=== PATIENT | male | born 1980 | race African-American/Black ===

== ENCOUNTER 2018-09-22 08:06 | Emergency (ER) | payer BC ==
[2018-09-22] MEDS ORDERED: Albuterol/Ipratropium 3.0-0.5 MG/3 ML Neb Soln NEB ONE (08:34)
--- NOTE | 2018-09-22 08:40 | EDM.PDOC ---
ED HPI GENERAL MEDICAL PROBLEM - General Chief Complaint: Respiratory Problem Stated Complaint: CHEST PAIN Time Seen by Provider: 09/22/18 08:13 - History of Present Illness INITIAL COMMENTS - FREE TEXT/NARRATIVE: HISTORY AND PHYSICAL: History of present illness: The patient is a 38-year-old male who has no significant pulmonary or cardiac history but does have a history of one pack a day smoking for many years and presents with complaints of 4-5 months of cough which is episodic spastic. The patient says that he has not seen a provider for this and did not get his flu shot this year. He's had no fevers chills or night sweats no recent weight loss no abdominal pain vomiting or diarrhea and says he is eating and drinking normally. He does admit that he drinks mostly caffeinated products and does not hydrate very well. He told nursing and me that he does have some diffuse anterior chest pain that comes and goes but it's mostly associated with the cough and occasionally with his breathing but it is not consistent or localized in any one space or area. He says that he the spastic cough and occasionally gets some phlegm but is mostly hacking. Over the last few days he has noticed some specks of blood he coughs in the mucous as well as similar from nasal drainage. He has no sinus pressure or pain no sore throat and no back pain. He has no leg pain or swelling. The patient says he has had a PPD years ago or a job he was doing which was negative but nothing recently. The patient says he's never had a bronchitis or asthma symptoms nor has he ever had pneumonia. Review of systems: As per history of present illness and below otherwise all systems reviewed and negative. Past medical history: As per history of present illness and as reviewed below otherwise noncontributory. Surgical history: As per history of present illness and as reviewed below otherwise noncontributory. Social history: No reported history of drug or alcohol abuse. Family history: As per history of present illness and as reviewed below otherwise noncontributory. Physical exam: General: Well-developed well-nourished man who is nontoxic and vital signs were noted by me. He is not breathless or hoarse on evaluation and he has no nasal quality to his voice HEENT: Atraumatic, normocephalic, pupils reactive, negative for conjunctival pallor or scleral icterus, mucous membranes moist, throat clear, neck supple, nontender, trachea midline. There is no cervical adenopathy or nuchal rigidity Lungs: Clear to auscultation with an occasional coarse breath sound but no wheezing stridor or work of breathing, breath sounds equal bilaterally, chest nontender. Heart: S1S2, regular, negative for clicks, rubs, or JVD. Abdomen: Soft, nondistended, nontender. Negative for masses or hepatosplenomegaly. Negative for costovertebral tenderness. Pelvis: Stable nontender. Genitourinary: Deferred. Rectal: Deferred. Extremities: Atraumatic, negative for cords or calf pain. Neurovascular unremarkable. No pedal edema or leg asymmetry Neuro: Awake, alert, oriented. Cranial nerves II through XII unremarkable. Cerebellum unremarkable. Motor and sensory unremarkable throughout. Exam nonfocal. Diagnostics: CBC chest x-ray Therapeutics: DuoNeb spacer I discussed with the patient at length by limitations here in the ED in evaluating a cough that has been present for 4-5 months. We agreed upon doing a basic blood count and a chest x-ray and helping him to treat his symptoms but he is aware that he will need further workup if the symptoms persist. I will give him appropriate information for clinic referral. Please note that initially on my evaluation the patient seemed very put off about my direct nature and about what an ED visit actually entails and seemed concerned. These concerns were alleviated and the patient was given information and made aware of the ED limitations and that is more chronic issues will need to be better addressed in the clinic Impression: Persistent cough, history of tobacco use stable Definitive disposition and diagnosis as appropriate pending reevaluation and review of above. chest Pain Score (Numeric/FACES): 2 - Related Data Allergies Allergy/AdvReac Type Severity Reaction Status Date / Time No Known Allergies Allergy Verified 09/22/18 08:15 Home Meds: Home Meds . [No Known Home Meds] 09/22/18 [History] Past Medical History - Past Health History Medical/Surgical History: Denies Medical/Surgical History - Infectious Disease History Infectious Disease History: Reports: Chicken Pox Social & Family History - Family History Family Medical History: Noncontributory - Tobacco Use Smoking Status *Q: Current Every Day Smoker Years of Tobacco use: 10 Packs/Tins Daily: 1 - Recreational Drug Use Recreational Drug Use: No ED ROS GENERAL - Review of Systems Review Of Systems: ROS reveals no pertinent complaints other than HPI. ED EXAM, GENERAL - Physical Exam Exam: See Below (See dictation) Course - Vital Signs Last Recorded V/S: Last Vital Signs Temp 36.3 C 09/22/18 08:16 Pulse 95 09/22/18 08:16 Resp 18 09/22/18 08:16 BP 134/74 09/22/18 08:16 Pulse Ox 96 09/22/18 08:16 - Orders/Labs/Meds Orders: Active Orders 24 hr Category Date Time Status RT Aerosol Therapy [RC] ASDIRECTED Care 09/22/18 08:35 Active Labs: Laboratory Tests 09/22/18 Range/Units 08:47 WBC 5.14 (4.0-11.0) K/uL RBC 4.88 (4.50-5.90) M/uL Hgb 15.0 (13.0-17.0) g/dL Hct 45.8 (38.0-50.0) % MCV 93.9 (80.0-98.0) fL MCH 30.7 (27.0-32.0) pg MCHC 32.8 (31.0-37.0) g/dL RDW Std Deviation 46.3 (28.0-62.0) fl RDW Coeff of Dominga 14 (11.0-15.0) % Plt Count 166 (150-400) K/uL MPV 11.20 (7.40-12.00) fL Neut % (Auto) 52.9 (48.0-80.0) % Lymph % (Auto) 31.9 (16.0-40.0) % [place] % (Auto) 13.2 (0.0-15.0) % Eos % (Auto) 1.6 (0.0-7.0) % Baso % (Auto) 0.4 (0.0-1.5) % Neut # (Auto) 2.7 (1.4-5.7) K/uL Lymph # (Auto) 1.6 (0.6-2.4) K/uL [place] # (Auto) 0.7 (0.0-0.8) K/uL Eos # (Auto) 0.1 (0.0-0.7) K/uL Baso # (Auto) 0.0 (0.0-0.1) K/uL Nucleated RBC % 0.0 /100WBC Nucleated RBCs # 0 K/uL Meds: Medications Discontinued Medications Generic Name Dose Route Start Last Admin Trade Name Michael PRN Reason Stop Dose Admin Albuterol/Ipratropium 3 ml 09/22/18 08:34 09/22/18 08:41 Duoneb 3.0-0.5 Mg/3 Ml NEB 09/22/18 08:35 3 ml ONETIME ONE Administration Departure - Departure Time of Disposition: 09:38 Disposition: Home, Self-Care 01 Condition: Good Clinical Impression: Persistent cough - Discharge Information Referrals: PCP,None [Primary Care Provider] - Forms: ED Department Discharge Additional Instructions: The following information is given to patients seen in the emergency department who are being discharged to home. This information is to outline your options for follow-up care. We provide all patients seen in our emergency department with a follow-up referral. The need for follow-up, as well as the timing and circumstances, are variable depending upon the specifics of your emergency department visit. If you don't have a primary care physician on staff, we will provide you with a referral. We always advise you to contact your personal physician following an emergency department visit to inform them of the circumstance of the visit and for follow-up with them and/or the need for any referrals to a consulting specialist. The emergency department will also refer you to a specialist when appropriate. This referral assures that you have the opportunity for followup care with a specialist. All of these measure are taken in an effort to provide you with optimal care, which includes your followup. Under all circumstances we always encourage you to contact your private physician who remains a resource for coordinating your care. When calling for followup care, please make the office aware that this follow-up is from your recent emergency room visit. If for any reason you are refused follow-up, please contact the [facility] emergency department at and ask to speak to the emergency department charge nurse. [facility] Primary care- Internal Medicine and Family [address] [address] Push hydration and try to reduce and/or quit smoking as we discussed. Use the albuterol/Ventolin inhaler you have been given with the spacer every 4-6 hours and one half as needed. Please call and schedule a follow-up appointment in the clinic as we discussed and return to ER as needed and as discussed - My Orders Last 24 Hours: My Active Orders 09/22/18 08:35 RT Aerosol Therapy [RC] ASDIRECTED - Assessment/Plan Last 24 Hours: My Active Orders 09/22/18 08:35 RT Aerosol Therapy [RC] ASDIRECTED
--- NOTE | 2018-09-22 09:32 | CR ---
INDICATION: Pain. Short of breath. Chest tightness. Coughing up a small amount of blood. FINDINGS: PA and lateral views of the chest were obtained. The cardiac silhouette and pulmonary vasculature are within normal limits. The lungs are clear bilaterally. IMPRESSION: No evidence of acute pulmonary disease. Dictated by Guille Jones MD @ 09/22/2018 9:29:31 AM Dictated by: Guille Jones MD @ 09/22/2018 09:30:00 (Electronically Signed)
== END 2018-09-22 09:50 | disposition home or self-care (01) ==
LOC: MW.ED 08:06
DX: R05 Cough (principal); F17.210 Nicotine dependence, cigarettes, uncomplicated
CPT/HCPCS: 36415; 71046; 71046-26; 85025; 99283; 99283-25; J7620-GY

== ENCOUNTER 2018-10-29 10:08 | Day surgery (SDC) | payer BC ==
[2018-10-29] MEDS ORDERED: Sodium Chloride 0.9% 1,000 ML IV ONE (10:09)
--- NOTE | 2018-10-29 10:10 | EDM.PDOC ---
ED HPI GENERAL MEDICAL PROBLEM - General Chief Complaint: Abdominal Pain Stated Complaint: POSSIBLE HERNIA LEFT SIDE Time Seen by Provider: 10/29/18 10:09 Source of Information: Reports: Patient History Limitations: Reports: No Limitations - History of Present Illness INITIAL COMMENTS - FREE TEXT/NARRATIVE: HISTORY AND PHYSICAL: History of present illness: Patient is a 38-year-old male who presents to the emergency room with complaints of left lower abdominal pain that originated in the left lower quadrant/left groin, starting Monday. He states since this morning the pain has gotten progressively worse and now moves into his left testicle. Pain is worse with certain movements, bearing down and coughing. He is concerned he may have a hernia. Denies any injury or trauma of the abdomen/pelvis. Patient denies any fever, chills, headache, change in vision, syncope or near syncope. Denies any chest pain, back pain, shortness of breath or cough. Denies any nausea, vomiting, diarrhea, constipation or dysuria. Has not noted any blood in urine or stool. Denies any penile drainage, lesions or sores. Patient has been eating and drinking appropriately. Review of systems: As per history of present illness and below otherwise all systems reviewed and negative. Past medical history: As per history of present illness and as reviewed below otherwise noncontributory. Surgical history: As per history of present illness and as reviewed below otherwise noncontributory. Social history: See social history for further information Family history: As per history of present illness and as reviewed below otherwise noncontributory. Physical exam: General: Well-developed and well-nourished 38-year-old male. Alert and oriented. Nontoxic appearing and in no acute distress. HEENT: Atraumatic, normocephalic, pupils equal and reactive bilaterally, negative for conjunctival pallor or scleral icterus, mucous membranes moist, TMs normal bilaterally, throat clear, neck supple, nontender, trachea midline. No drooling or trismus noted. No meningeal signs. No hot potato voice noted. Lungs: Clear to auscultation, breath sounds equal bilaterally, chest nontender. Heart: S1S2, regular rate and rhythm without overt murmur Abdomen: Soft, nondistended, nontender. See for details. Negative for masses or hepatosplenomegaly. Negative for costovertebral tenderness. Pelvis: Stable nontender. Genitourinary: This was done with consent and a fugitive investigator at the bedside. Left testes is grossly enlarged and tender with palpation. No surrounding erythema. Unable to assess for hernia in the right inguinal canal due to swelling. Right teste unremarkable. Unable to appreciate any hernias in the right inguinal canal. Rectal: Deferred. Skin: SEE . Skin is intact, warm, dry. No lesions or rashes noted. Extremities: Atraumatic, moves all extremities per self without difficulty or deficits. Neurovascular unremarkable. Neuro: Awake, alert, oriented. Cranial nerves II through XII unremarkable. Cerebellum unremarkable. Motor and sensory unremarkable throughout. Exam nonfocal. Notes: Vital signs are stable and have been reviewed by me. See physical exam for testicular details. Lab work is unremarkable. Ultrasound shows a fat-containing left inguinal hernia extending into the scrotum with an adjacent hydrocele. The left testicle is also mildly hyperemic relative to the right. Under lying cholecystitis is not excluded, however this may be reactive secondary to the hernia. CT shows a fat-containing left inguinal hernia, given the fluid and stranding this may suggest incarceration. Dr Ca, general surgeon certifed refrigeration operator, was consulted on this case. He will come in and evaluate this patient. 1430: Dr Ca here with patient; plans to take patient to OR this afternoon Diagnostics: CBC, CMP, UA, Lipase, Scrotum/Contents US, Pelvis CT Therapeutics: IV fluids, Zofran, Morphine Impression: Inguinal hernia, left Plan: To OR for surgery. Definitive disposition and diagnosis as appropriate pending reevaluation and review of above. Left Groin Pain Score (Numeric/FACES): 5 - Related Data Allergies Allergy/AdvReac Type Severity Reaction Status Date / Time No Known Allergies Allergy Verified 10/29/18 10:16 Home Meds: Home Meds . [No Known Home Meds] 09/22/18 [History] Past Medical History - Past Health History Medical/Surgical History: Denies Medical/Surgical History - Infectious Disease History Infectious Disease History: Reports: Chicken Pox Social & Family History - Family History Family Medical History: Noncontributory ED ROS GENERAL - Review of Systems Review Of Systems: ROS reveals no pertinent complaints other than HPI. ED EXAM, GI/ABD - Physical Exam Exam: See Below (See dictation) Course - Vital Signs Last Recorded V/S: Last Vital Signs Temp 97.3 F 10/29/18 14:05 Pulse 66 10/29/18 14:05 Resp 16 10/29/18 14:05 BP 123/90 10/29/18 14:05 Pulse Ox 96 10/29/18 14:05 - Orders/Labs/Meds Orders: Active Orders 24 hr Category Date Time Status Notify Provider Consults [RC] ASDIRECTED Care 10/29/18 14:23 Active Consult to Physician [CONS] Stat Cons 10/29/18 14:23 Active Labs: Laboratory Tests 10/29/18 10/29/18 10/29/18 Range/Units 10:17 10:17 12:17 WBC 5.74 (4.0-11.0) K/uL RBC 5.02 (4.50-5.90) M/uL Hgb 15.6 (13.0-17.0) g/dL Hct 46.9 (38.0-50.0) % MCV 93.4 (80.0-98.0) fL MCH 31.1 (27.0-32.0) pg MCHC 33.3 (31.0-37.0) g/dL RDW Std Deviation 45.8 (28.0-62.0) fl RDW Coeff of Dominga 13 (11.0-15.0) % Plt Count 176 (150-400) K/uL MPV 11.80 (7.40-12.00) fL Neut % (Auto) 55.8 (48.0-80.0) % Lymph % (Auto) 32.6 (16.0-40.0) % [place] % (Auto) 9.9 (0.0-15.0) % Eos % (Auto) 1.4 (0.0-7.0) % Baso % (Auto) 0.3 (0.0-1.5) % Neut # (Auto) 3.2 (1.4-5.7) K/uL Lymph # (Auto) 1.9 (0.6-2.4) K/uL [place] # (Auto) 0.6 (0.0-0.8) K/uL Eos # (Auto) 0.1 (0.0-0.7) K/uL Baso # (Auto) 0.0 (0.0-0.1) K/uL Nucleated RBC % 0.0 /100WBC Nucleated RBCs # 0 K/uL Sodium 140 (136-148) mmol/L Potassium 4.3 (3.5-5.1) mmol/L Chloride 105 (98-107) mmol/L Carbon Dioxide 26.0 (21.0-32.0) mmol/L BUN 10 (7.0-18.0) mg/dL Creatinine 1.0 (0.8-1.3) mg/dL Est Cr Clr Drug Dosing 108.86 mL/min Estimated GFR (MDRD) > 60.0 ml/min Glucose 100 (74-106) mg/dL Calcium 8.8 (8.5-10.1) mg/dL Total Bilirubin 0.4 (0.2-1.0) mg/dL AST 21 (15-37) IU/L ALT 26 (14-63) IU/L Alkaline Phosphatase 67 (46-116) U/L Total Protein 7.5 (6.4-8.2) g/dL Albumin 3.9 (3.4-5.0) g/dL Globulin 3.6 (2.6-4.0) g/dL Albumin/Globulin Ratio 1.1 (0.9-1.6) Lipase 87 (73-393) U/L Urine Color YELLOW Urine Appearance CLEAR Urine pH 6.0 (5.0-8.0) Ur Specific [place] 1.025 (1.001-1.035) Urine Protein NEGATIVE (NEGATIVE) mg/dL Urine Glucose (UA) NEGATIVE (NEGATIVE) mg/dL Urine Ketones NEGATIVE (NEGATIVE) mg/dL Urine Occult Blood NEGATIVE (NEGATIVE) Urine Nitrite NEGATIVE (NEGATIVE) Urine Bilirubin NEGATIVE (NEGATIVE) Urine Urobilinogen 0.2 (<2.0) EU/dL Ur Leukocyte Esterase NEGATIVE (NEGATIVE) Meds: Medications Discontinued Medications Generic Name Dose Route Start Last Admin Trade Name Freq PRN Reason Stop Dose Admin Sodium Chloride 1,000 mls @ 999 mls/hr 10/29/18 10:09 10/29/18 10:19 Normal Saline IV 10/29/18 11:09 999 mls/hr STAT ONE Administration Iopamidol 100 ml 10/29/18 12:15 10/29/18 12:42 Isovue Multipack-370 (76%) IVPUSH 10/29/18 12:16 100 ml ONETIME STA Administration Morphine Sulfate 4 mg 10/29/18 10:30 10/29/18 10:38 Morphine IVPUSH 10/29/18 10:31 4 mg ONETIME ONE Administration Morphine Sulfate 2 mg 10/29/18 11:45 10/29/18 11:48 Morphine IVPUSH 10/29/18 11:46 2 mg ONETIME ONE Administration Morphine Sulfate Confirm 10/29/18 11:46 10/29/18 12:22 Morphine Administered 10/29/18 11:47 Not Given Dose 2 mg .ROUTE .STK-MED ONE Ondansetron HCl 4 mg 10/29/18 10:30 10/29/18 10:38 Zofran IVPUSH 10/29/18 10:31 4 mg ONETIME ONE Administration Departure - Departure Time of Disposition: 14:49 Disposition: Still A Patient 30 Clinical Impression: Inguinal hernia Qualifiers: Obstruction and gangrene presence: without obstruction or gangrene Laterality: unilateral Recurrence: non-recurrent Qualified Code(s): K40.90 - Unilateral inguinal hernia, without obstruction or gangrene, not specified as recurrent - Discharge Information Referrals: PCP,None [Primary Care Provider] - Forms: ED Department Discharge - My Orders Last 24 Hours: My Active Orders 10/29/18 14:23 Notify Provider Consults [RC] ASDIRECTED Consult to Physician [CONS] Stat - Assessment/Plan Last 24 Hours: My Active Orders 10/29/18 14:23 Notify Provider Consults [RC] ASDIRECTED Consult to Physician [CONS] Stat
[2018-10-29] MEDS ORDERED: Morphine 4 MG/ML Syringe IVPUSH ONE (10:30)
[2018-10-29] MEDS ORDERED: Ondansetron 4 MG/2 ML SDV IVPUSH ONE (10:30)
[2018-10-29 10:51] LABS: CHLORIDE,CL 105 mmol/L (98-107); SODIUM,NA 140 mmol/L (136-148)
[2018-10-29] MEDS ORDERED: Morphine 2 MG/ML Syringe IVPUSH ONE (11:45)
[2018-10-29] MEDS ORDERED: Morphine 2 MG/ML Syringe ONE (11:46)
[2018-10-29] MEDS ORDERED: Iopamidol 755 MG/ML 500 ML Multipack Bottle IVPUSH STA (12:15)
--- NOTE | 2018-10-29 13:08 | US ---
EXAMINATION: Scrotal duplex ultrasound HISTORY: Concern for hernia COMPARISON: CT from the same day TECHNIQUE: Grayscale, color Doppler, and spectral Doppler imaging obtained. FINDINGS: Both the left and right testicles are normal in size, contour, and echogenicity. No testicular mass. Small calcification noted within the right testicle. There is relatively increased color Doppler flow within the left testicle relative to the right. There is a moderate left-sided hydrocele as well. Epididymides appear grossly normal. No scrotal wall thickening. There is a fungating echogenicity extending from the left inguinal region into the scrotum with an adjacent hydrocele. This does not demonstrate increased color flow and likely represents herniation of adipose tissue. This is confirmed on the CT. IMPRESSION: 1. Fat-containing left inguinal hernia extending into the scrotum with an adjacent hydrocele. 2. The left testicle is also mildly hyperemic relative to the right. Underlying cholecystitis is not excluded, however this may be reactive secondary to the hernia.
--- NOTE | 2018-10-29 13:33 | CT ---
EXAMINATION: CT pelvis with contrast HISTORY: Concern for hernia COMPARISON: None TECHNIQUE: Axial CT imaging obtained through the pelvis following the administration 100 mL of Isovue-370 the right antecubital fossa. Coronal and sagittal reconstructions obtained. FINDINGS: The visualized large and small bowel are normal in caliber without evidence of obstruction. The urinary bladder is decompressed. No bulky pelvic lymphadenopathy or free pelvic fluid. The appendix is normal. There is a fat-containing left inguinal hernia with a small to moderate hydrocele and adjacent stranding. Visualized osseous structures appear intact. Hardware is noted within the right femur. IMPRESSION: 1. Fat-containing left inguinal hernia, given the fluid and stranding this may suggest incarceration.
[2018-10-29] MEDS ORDERED: ceFAZolin 2 GM in Premix Bag 1 BAG IV ONE (15:07)
[2018-10-29] MEDS ORDERED: Lactated Ringers 1,000 ML IV SCH ×2 (15:15→18:15)
[2018-10-29] MEDS ORDERED: Bupivacaine 25%/EPINEPHrine/PF 30 ML ONE (15:16)
[2018-10-29] MEDS ORDERED: Lidocaine 1% with EPINEPHrine 1:100,000 20 ML MDV ONE (15:17)
[2018-10-29] MEDS ORDERED: Octyl 2-Cyanoacrylate 1 Tube ONE (15:17)
--- NOTE | 2018-10-29 15:35 | PCM.PREANE ---
Preanesthetic Assessment - Anesthesia/Transfusion/Family Hx Anesthesia History: Prior Anesthesia Reaction Family History of Anesthesia Reaction: No - Review of Systems General: No Symptoms Pulmonary: No Symptoms Cardiovascular: No Symptoms Gastrointestinal: No Symptoms Neurological: No Symptoms Other: Reports: None - Physical Assessment NPO Status Date: 10/28/18 NPO Status Time: 23:00 O2 Sat by Pulse Oximetry: 96 Respiratory Rate: 16 Vital Signs: Last Vital Signs Temp 36.3 C 10/29/18 14:05 Pulse 66 10/29/18 14:05 Resp 16 10/29/18 14:05 BP 123/90 10/29/18 14:05 Pulse Ox 96 10/29/18 14:05 Height: 1.83 m Weight: 84.4 kg ASA Class: 1E Mental Status: Alert & Oriented x3 Dentition: Reports: Normal Dentition ROM/Head Extension: Full Lungs: Clear to Auscultation, Normal Respiratory Effort Cardiovascular: Regular Rate, Regular Rhythm - Lab Values: Laboratory Last Values WBC 5.74 K/uL (4.0-11.0) 10/29/18 10:17 RBC 5.02 M/uL (4.50-5.90) 10/29/18 10:17 Hgb 15.6 g/dL (13.0-17.0) 10/29/18 10:17 Hct 46.9 % (38.0-50.0) 10/29/18 10:17 MCV 93.4 fL (80.0-98.0) 10/29/18 10:17 MCH 31.1 pg (27.0-32.0) 10/29/18 10: MCHC 33.3 g/dL (31.0-37.0) 10/29/18 10:17 RDW Std Deviation 45.8 fl (28.0-62.0) 10/29/18 10:17 RDW Coeff of Dominga 13 % (11.0-15.0) 10/29/18 10:17 Plt Count 176 K/uL (150-400) 10/29/18 10:17 MPV 11.80 fL (7.40-12.00) 10/29/18 10:17 Neut % (Auto) 55.8 % (48.0-80.0) 10/29/18 10:17 Lymph % (Auto) 32.6 % (16.0-40.0) 10/29/18 10:17 Cherry % (Auto) 9.9 % (0.0-15.0) 10/29/18 10:17 Eos % (Auto) 1.4 % (0.0-7.0) 10/29/18 10:17 Baso % (Auto) 0.3 % (0.0-1.5) 10/29/18 10:17 Neut # (Auto) 3.2 K/uL (1.4-5.7) 10/29/18 10:17 Lymph # (Auto) 1.9 K/uL (0.6-2.4) 10/29/18 10:17 Cherry # (Auto) 0.6 K/uL (0.0-0.8) 10/29/18 10:17 Eos # (Auto) 0.1 K/uL (0.0-0.7) 10/29/18 10:17 Baso # (Auto) 0.0 K/uL (0.0-0.1) 10/29/18 10:17 Nucleated RBC % 0.0 /100WBC 10/29/18 10:17 Nucleated RBCs # 0 K/uL 10/29/18 10:17 Sodium 140 mmol/L (136-148) 10/29/18 10:17 Potassium 4.3 mmol/L (3.5-5.1) 10/29/18 10:17 Chloride 105 mmol/L (98-107) 10/29/18 10:17 Carbon Dioxide 26.0 mmol/L (21.0-32.0) 10/29/18 10:17 BUN 10 mg/dL (7.0-18.0) 10/29/18 10:17 Creatinine 1.0 mg/dL (0.8-1.3) 10/29/18 10:17 Est Cr Clr Drug Dosing 108.86 mL/min 10/29/18 10:17 Estimated GFR (MDRD) > 60.0 ml/min 10/29/18 10:17 Glucose 100 mg/dL (74-106) 10/29/18 10:17 Calcium 8.8 mg/dL (8.5-10.1) 10/29/18 10:17 Total Bilirubin 0.4 mg/dL (0.2-1.0) 10/29/18 10:17 AST 21 IU/L (15-37) 10/29/18 10:17 ALT 26 IU/L (14-63) 10/29/18 10:17 Alkaline Phosphatase 67 U/L (46-116) 10/29/18 10:17 Total Protein 7.5 g/dL (6.4-8.2) 10/29/18 10:17 Albumin 3.9 g/dL (3.4-5.0) 10/29/18 10:17 Globulin 3.6 g/dL (2.6-4.0) 10/29/18 10:17 Albumin/Globulin Ratio 1.1 (0.9-1.6) 10/29/18 10:17 Lipase 87 U/L (73-393) 10/29/18 10:17 Urine Color YELLOW 10/29/18 12:17 Urine Appearance CLEAR 10/29/18 12:17 Urine pH 6.0 (5.0-8.0) 10/29/18 12:17 Ur Specific [place] 1.025 (1.001-1.035) 10/29/18 12:17 Urine Protein NEGATIVE mg/dL (NEGATIVE) 10/29/18 12:17 Urine Glucose (UA) NEGATIVE mg/dL (NEGATIVE) 10/29/18 12:17 Urine Ketones NEGATIVE mg/dL (NEGATIVE) 10/29/18 12:17 Urine Occult Blood NEGATIVE (NEGATIVE) 10/29/18 12:17 Urine Nitrite NEGATIVE (NEGATIVE) 10/29/18 12:17 Urine Bilirubin NEGATIVE (NEGATIVE) 10/29/18 12:17 Urine Urobilinogen 0.2 EU/dL (<2.0) 10/29/18 12:17 Ur Leukocyte Esterase NEGATIVE (NEGATIVE) 10/29/18 12:17 - Allergies Allergies/Adverse Reactions: Allergies Allergy/AdvReac Type Severity Reaction Status Date / Time No Known Allergies Allergy Verified 10/29/18 10:16 - Acknowledgements Anesthesia Type Planned: General Anesthesia Pt an Appropriate Candidate for the Planned Anesthesia: Yes Alternatives and Risks of Anesthesia Discussed w Pt/Guardian: Yes Pt/Guardian Understands and Agrees with Anesthesia Plan: Yes Additional Comments: Questions answered. PreAnesthesia Questionnaire - Past Health History Medical/Surgical History: Denies Medical/Surgical History HEENT History: Reports: None Cardiovascular History: Reports: None Respiratory History: Reports: None Gastrointestinal History: Reports: None Genitourinary History: Reports: None Musculoskeletal History: Reports: None Neurological History: Reports: None Psychiatric History: Reports: None Endocrine/Metabolic History: Reports: None Hematologic History: Reports: None Immunologic History: Reports: None Oncologic (Cancer) History: Reports: None Dermatologic History: Reports: None - Infectious Disease History Infectious Disease History: Reports: Chicken Pox - Past Surgical History Head Surgeries/Procedures: Reports: None HEENT Surgical History: Reports: None Cardiovascular Surgical History: Reports: None Respiratory Surgical History: Reports: None GI Surgical History: Reports: None Male Surgical History: Reports: None Endocrine Surgical History: Reports: None Neurological Surgical History: Reports: None Musculoskeletal Surgical History: Reports: None Oncologic Surgical History: Reports: None Dermatological Surgical History: Reports: None - SUBSTANCE USE Smoking Status *Q: Current Every Day Smoker Recreational Drug Use History: No - HOME MEDS Home Medications: Home Meds . [No Known Home Meds] 09/22/18 [History] - CURRENT (IN HOUSE) MEDS Current Meds: Current Medications Cefazolin Sodium/Dextrose 2 gm (/ Premix) 50 mls @ 100 mls/hr IV ONETIME ONE Stop: 10/29/18 15:36 Last Admin: 10/29/18 15:32 Dose: 100 mls/hr Lactated Ringer's (Ringers, Lactated) 1,000 mls @ 150 mls/hr IV ASDIRECTED TAIWO Last Admin: 10/29/18 15:32 Dose: 150 mls/hr Discontinued Medications Sodium Chloride (Normal Saline) 1,000 mls @ 999 mls/hr IV STAT ONE Stop: 10/29/18 11:09 Last Admin: 10/29/18 10:19 Dose: 999 mls/hr Bupivacaine HCl/Epinephrine Bitart (Sensorc Mpf 0.25%-Epi 1:[id number]) Confirm Administered Dose 30 mls @ as directed .ROUTE .STK-MED ONE Stop: 10/29/18 15:17 Iopamidol (Isovue Multipack-370 (76%)) 100 ml IVPUSH ONETIME STA Stop: 10/29/18 12:16 Last Admin: 10/29/18 12:42 Dose: 100 ml Lidocaine/Epinephrine (Xylocaine 1% With Epinephrine 1:100,000) Confirm Administered Dose 20 ml .ROUTE .STK-MED ONE Stop: 10/29/18 15:18 Morphine Sulfate (Morphine) 4 mg IVPUSH ONETIME ONE Stop: 10/29/18 10:31 Last Admin: 10/29/18 10:38 Dose: 4 mg Morphine Sulfate (Morphine) 2 mg IVPUSH ONETIME ONE Stop: 10/29/18 11:46 Last Admin: 10/29/18 11:48 Dose: 2 mg Morphine Sulfate (Morphine) Confirm Administered Dose 2 mg .ROUTE .STK-MED ONE Stop: 10/29/18 11:47 Last Admin: 10/29/18 12:22 Dose: Not Given Octyl Cyanoacrylate (Dermabond Advance) Confirm Administered Dose 1 applic .ROUTE .STK-MED ONE Stop: 10/29/18 15:18 Ondansetron HCl (Zofran) 4 mg IVPUSH ONETIME ONE Stop: 10/29/18 10:31 Last Admin: 10/29/18 10:38 Dose: 4 mg
[2018-10-29] MEDS ORDERED: Midazolam 1 MG/ML 2 ML SDV ONE (15:38)
[2018-10-29] MEDS ORDERED: Ondansetron 4 MG/2 ML SDV ONE (15:38)
[2018-10-29] MEDS ORDERED: Dexamethasone 4 MG/ML 5 ML MDV ONE (15:38)
[2018-10-29] MEDS ORDERED: Lidocaine 2% 5 ML SDV ONE (15:38)
[2018-10-29] MEDS ORDERED: fentaNYL 100 MCG/2 ML SDV ONE ×2 (15:38→16:04)
[2018-10-29] MEDS ORDERED: Ketorolac 30 MG/ML SDV ONE (15:38)
[2018-10-29] MEDS ORDERED: Propofol 200 MG/20 ML SDV ONE (15:40)
--- NOTE | 2018-10-29 15:53 | PCM.SN ---
- Free Text/Narrative Note: pt seen, chart reviewed; incarcerated L ing hernia, w compromised blood supply to L testicle; proceed w urgent surg repair w mesh; rb dw pt, pt is a smoker, has smoker cough, and bronchitis, and large hernia, hi risk for failure/ recurrency, pt voiced understanding; and also long standing incarceration, with imaging decrease blood supply to L testicle, risk involved, ischemic orchitis; pt voiced understanding, proceed w surgery; [id number]
[2018-10-29] MEDS ORDERED: Rocuronium 100 MG/10 ML MDV ONE (16:03)
[2018-10-29] MEDS ORDERED: Gelatin Sponge,Absorbable 12-7 mm Sponge TOP ONE (17:14)
--- NOTE | 2018-10-29 18:03 | PCM.OPNOTE ---
- General Post-Op/Procedure Note Date of Surgery/Procedure: 10/29/18 Operative Procedure(s): L incarcerated ing hernia, repair w plug and mesh Findings: L inguinal hernia; very large indirect hernia, like a large orange, no direct hernia, repair w medium size plug; [id number] Pre Op Diagnosis: incarcerated LIH Post-Op Diagnosis: Same Anesthesia Technique: General LMA Primary Surgeon: Rodolfo Ca Pathology: hernia sac sent Complications: None Condition: Fair
[2018-10-29] MEDS ORDERED: Acetaminophen/oxyCODONE 325-5 MG Tab PO PRN (18:05)
[2018-10-29] MEDS ORDERED: Ondansetron 4 MG/2 ML SDV IVPUSH PRN (18:08)
[2018-10-29] MEDS ORDERED: Docusate Sodium 100 MG Cap PO PRN (18:08)
--- NOTE | 2018-10-29 18:26 | PCM.POSTAN ---
POST ANESTHESIA ASSESSMENT - VITAL SIGNS Pulse Rate: 88 SaO2: 98 Resp Rate: 88 Blood Pressure: 126/74 - RESPIRATORY Respiratory Status: Respiratory Rate WNL, Airway Patent, O2 Saturation Stable - CARDIOVASCULAR CV Status: Pulse Rate WNL, Blood Pressure Stable - GASTROINTESTINAL GI Status: No Symptoms - POST OP HYDRATION Hydration Status: Adequate & Stable
--- NOTE | 2018-10-30 00:24 | OR ---
SURGEON: Rodolfo Ca MD DATE OF PROCEDURE: 10/29/2018 PREOPERATIVE DIAGNOSIS: Incarcerated left inguinal hernia. POSTOPERATIVE DIAGNOSIS: Incarcerated left inguinal hernia. PROCEDURE PERFORMED: Repair of incarcerated left inguinal hernia with mesh. COMPLICATIONS: None. FINDING: A very large hernia sac, and also the hernia sac has thickened skin and suggests it has been there for quite a while. The hernia sac is about the size of a large orange, not a lemon, not a grapefruit. Repair with a medium-sized plug. There was no direct hernia, only indirect hernia. PROCEDURE IN DETAIL: The patient was taken to the operating room and placed in the supine position. Upon induction of general endotracheal anesthesia, the patient's groin and inguinal area were prepped and draped in a sterile fashion. The scrotum was placed on top of the drape in case it needed to be maneuvered. An IV antibiotic was given prophylactically and after assessment of appropriate landmark, a transverse skin incision was made two fingers above the inguinal crease. This was then carefully taken down past the Ivis fascia and exposed the external oblique where the cord is. A small george was made right on top of the cord and then using a Metzenbaum scissors, carefully opened up the fiber along its direction all the way to the external ring. The spermatic cord was then carefully lifted up from the inguinal canal. A Karl drain was then used to hold on to manipulate the cord and carefully dissect out from the inguinal floor. The cremasteric muscle was then opened up. Careful examined of the cord, dissected down the cremasteric muscle, a large glistening whitish hernia sac in the medial anterior aspect of the floor, next to the cord, was located. The vas was identified and pushed aside to avoid damage. This was carefully dissected down all the way to the internal ring. The hernia sac was open up to examine if there was any hernia content; using a 2-0 silk, a purse string was placed to close the sac and the redundant part of the sac was amputated. A small plug was inserted into the hernia stump and followed with a mesh to reinforce the inguinal floor. The mesh was then anchored down by using 2-0 Prolene stitches to the periosteum of the pubic symphysis, then running down to the lateral aspect of the rectus muscle. The lateral part of the mesh was then anchored to the Trever ligament, again using 2-0 Prolene. The last few stitches also anchored the plug to make sure the plug is not migrating. Where the cord exits out, a stitch was placed in the two tails to repair the internal ring. Upon conclusion of surgery, I used a finger to make sure the ring is not too tight and not too loose, followed with some irrigation. The external oblique was then repaired by use of 2-0 Vicryl and the recreation external ring was also tested, not too tight, not too loose, followed with 2-0 Vicryl and closed the Ivis fascia and the skin stapled to approximate the skin, followed by appropriate dressing. The patient was then awakened, extubated and transferred to recovery room in a hemodynamically stable condition. The patient tolerated the procedure well. There were no intraoperative complications. Dr. Ca was present through the whole procedure. Just before surgery, a timeout was called. The patient was identified and procedure identified and procedure started. As always, thank you for the kind referral. Intraoperative findings as dictated above. At the conclusion of the surgery, a piece of Surgicel was inserted for hemostasis. NICCI / REINA /[id number]
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
== END 2018-10-29 21:25 | disposition home or self-care (01) ==
LOC: MW.ED 10:08 → MW.SDS 15:00 → MW.MS 15:00 → MW.SDS 21:25
PROVIDERS: ATTEND Surgery
DX: K40.30 Unilateral inguinal hernia, with obstruction, without gangrene, not specified as recurrent (principal); J40 Bronchitis, not specified as acute or chronic; F17.210 Nicotine dependence, cigarettes, uncomplicated; Z79.51 Long term (current) use of inhaled steroids; Z79.899 Other long term (current) drug therapy
CPT/HCPCS: 36415; 49507; 72193; 76870; 80053; 81003; 83690; 85025; 93976; 96361; 96374; 96375; 96376; 99285; A4217; C1781; J0690; J1100; J1885; J2001; J2250; J2270; J2405; J2704; J3010; J7040; J7120; Q9967; A9270-GY

== ENCOUNTER 2021-05-28 11:53 | Emergency (ER) | payer BC, OTHER ==
--- NOTE | 2021-05-28 12:00 | EDM.PDOC ---
ED HPI GENERAL MEDICAL PROBLEM - General Chief Complaint: ENT Problem Stated Complaint: SINUS INFECTION Time Seen by Provider: 05/28/21 11:55 Source of Information: Reports: Patient History Limitations: Reports: No Limitations - History of Present Illness INITIAL COMMENTS - FREE TEXT/NARRATIVE: HISTORY AND PHYSICAL: History of present illness: Patient is a 46-year-old male who presents from the clinic with complaints of sinusitis. He states he has felt unwell over the past 4 to 5 days since being out in the cold weather. Complaining of sinus pressure, congestion and feeling lightheaded. Initially had gone to the clinic as he had not gone to work and was required to have a work note. He declines wanting any COVID/influenza testing or diagnostics. Patient denies any fever, chills, headache, change in vision, syncope or near syncope. Denies any chest pain, back pain, shortness of breath or cough. Denies any GI or symptoms. Patient has been eating and drinking appropriately. No recent travel or sick contacts. Review of systems: As per history of present illness and below otherwise all systems reviewed and negative. Past medical history: As per history of present illness and as reviewed below otherwise noncontributory. Surgical history: As per history of present illness and as reviewed below otherwise noncontributory. Social history: See social history for further information Family history: As per history of present illness and as reviewed below otherwise noncontributory. Physical exam: General: Well developed and well nourished 41-year-old male. Alert and orientated x 3. Nontoxic in appearance and in no acute distress. Vital signs are stable and have been reviewed by me. Nursing notes were reviewed. HEENT: Atraumatic, normocephalic, pupils equal and reactive bilaterally, negative for conjunctival pallor or scleral icterus, mucous membranes moist, bilateral maxillary and frontal sinus tenderness. TMs normal bilaterally, throat clear, neck supple, nontender, trachea midline. No drooling or trismus noted. No meningeal signs. No hot potato voice noted. Lungs: Clear to auscultation bilaterally. No wheezes, rales, or rhonchi. Chest nontender. Normal work of breathing, no accessory muscles used. Heart: S1S2, regular rate and rhythm without overt murmur, gallops, or rubs. No JVD. No peripheral edema Abdomen: Soft, nondistended, nontender. Skin: Intact, warm, dry. No lesions or rashes noted. Hematologic: No petechiae or purpra. Mucosa appropriate color and normal nail bed color and refill. Extremities: Atraumatic, moves all extremities per self without difficulty or deficits, negative for cords or calf pain. Neurovascular unremarkable. Neuro: Awake, alert, oriented. Cranial nerves II through XII unremarkable. Cerebellum unremarkable. Motor and sensory unremarkable throughout. Exam nonfocal. Psychiatric: Mood and affect are appropriate. Normal thought process. Answering questions appropriately. Please note that the patient was seen and evaluated during the 2019 SARS-CoV-2 novel coronavirus pandemic period. Community viral transmission is ongoing at time of this encounter and the emergency department is operating under pandemic response procedures. Medical Decision Making: Patient is a 41-year-old male who presents to the emergency room with complaints of sinusitis, requiring a note for work. He declines wanting any diagnostics done today. States he would like to have an antibiotic if able. Will do a 7 day course of ABX. The patient is stable for discharge, counseling was provided and we discussed in great detail signs and symptoms that would prompt them to return to the Emergency Department. Medication, follow up and supportive care measures were reviewed and discussed. Voices understanding and is agreeable to plan of care. Denies any further questions or concerns at this time. Diagnostics: Declined Therapeutics: None Prescription: Augmentin BID x 7 days Impression: Sinusitis Plan: 1. You were evaluated today on an emergent basis. You declined testing for COVID or Influenza today. 2. You can alternate Tylenol and ibuprofen as needed for pain and fever management. 3. We encourage you to follow up with your primary care provider for re- evaluation and further care/management. 4. If your symptoms should worsen, new symptoms develop or any of the signs and symptoms we discussed should arise please return to the emergency room or call 911 (if needed). Definitive disposition and diagnosis as appropriate pending reevaluation and review of above. - Related Data Allergies Allergy/AdvReac Type Severity Reaction Status Date / Time No Known Allergies Allergy Verified 05/28/21 12:06 Home Meds: Home Meds Amoxicillin/Clavulanate K [Augmentin 875-125 MG] 1 tab PO BID 7 Days #14 tablet 05/28/21 [Rx] Past Medical History - Past Health History Medical/Surgical History: Denies Medical/Surgical History HEENT History: Reports: None Cardiovascular History: Reports: None Respiratory History: Reports: None Gastrointestinal History: Reports: None Genitourinary History: Reports: None Musculoskeletal History: Reports: None Neurological History: Reports: None Psychiatric History: Reports: None Endocrine/Metabolic History: Reports: None Hematologic History: Reports: None Immunologic History: Reports: None Oncologic (Cancer) History: Reports: None Dermatologic History: Reports: None - Infectious Disease History Infectious Disease History: Reports: Chicken Pox - Past Surgical History Head Surgeries/Procedures: Reports: None HEENT Surgical History: Reports: None Cardiovascular Surgical History: Reports: None Respiratory Surgical History: Reports: None GI Surgical History: Reports: None Male Surgical History: Reports: None Endocrine Surgical History: Reports: None Neurological Surgical History: Reports: None Musculoskeletal Surgical History: Reports: None Oncologic Surgical History: Reports: None Dermatological Surgical History: Reports: None Social & Family History - Family History Family Medical History: No Pertinent Family History - Caffeine Use Caffeine Use: Reports: Coffee ED ROS ENT - Review of Systems Review Of Systems: Comprehensive ROS is negative, except as noted in HPI. ED EXAM, ENT - Physical Exam Exam: See Below (See dictation) Course - Vital Signs Last Recorded V/S: Last Vital Signs Temp 97.2 F 05/28/21 12:06 Pulse 84 05/28/21 12:06 Resp 16 05/28/21 12:06 BP 100/73 05/28/21 12:06 Pulse Ox 97 05/28/21 12:06 Departure - Departure Time of Disposition: 12:15 Disposition: Eloped 07 Clinical Impression: Sinusitis Qualifiers: Sinusitis location: frontal Chronicity: acute Recurrence: non-recurrent Qualified Code(s): J01.10 - Acute frontal sinusitis, unspecified - Discharge Information Prescriptions: Amoxicillin/Clavulanate K [Augmentin 875-125 MG] 1 tab PO BID 7 Days #14 tablet Instructions: Sinusitis, Adult, [id number] Forms: ED Department Discharge Additional Instructions: The following information is given to patients seen in the emergency department who are being discharged to home. This information is to outline your options for follow-up care. We provide all patients seen in our emergency department with a follow-up referral. The need for follow-up, as well as the timing and circumstances, are variable depending upon the specifics of your emergency department visit. If you don't have a primary care physician on staff, we will provide you with a referral. We always advise you to contact your personal physician following an emergency department visit to inform them of the circumstance of the visit and for follow-up with them and/or the need for any referrals to a consulting specialist. The emergency department will also refer you to a specialist when appropriate. This referral assures that you have the opportunity for follow-up care with a specialist. All of these measure are taken in an effort to provide you with optimal care, which includes your follow-up. Under all circumstances we always encourage you to contact your private physician who remains a resource for coordinating your care. When calling for follow-up care, please make the office aware that this follow-up is from your recent emergency room visit. If for any reason you are refused follow-up, please contact the [facility] at and asked to speak to the emergency department charge nurse. [facility] [address] [place] [id number] [place] [address] Thank you for choosing the [facility] emergency department in [place] for your medical needs today. It was a pleasure caring for you. Today you were seen in the emergency department for viral vs sinusitis Your prescription was electronically sent to: [facility] Medication/Directions: Augmetin twice daily x 7 days 1. You were evaluated today on an emergent basis. You declined testing for COVID or Influenza today. 2. You can alternate Tylenol and ibuprofen as needed for pain and fever management. 3. We encourage you to follow up with your primary care provider for re- evaluation and further care/management. 4. If your symptoms should worsen, new symptoms develop or any of the signs and symptoms we discussed should arise please return to the emergency room or call 911 (if needed). Sepsis Event Note (ED) - Focused Exam Vital Signs: Vital Signs Temp Pulse Resp BP Pulse Ox 05/28/21 12:06 97.2 F 84 16 100/73 97
== END 2021-05-28 12:23 | disposition left against medical advice (07) ==
LOC: MW.ED 11:53
DX: J01.10 Acute frontal sinusitis, unspecified (principal)
CPT/HCPCS: 99283